=== PATIENT | female | born 1965 | race African-American/Black ===

== ENCOUNTER 2021-04-02 17:24 | Emergency (ER) | payer SELFPAY ==
[~2021-04-02] VITALS: Ht 170.2 cm; Wt 73.0 kg
[2021-04-02] MEDS ORDERED: GABAPENTIN 300MG CAPSULE PO ONE (17:45)
[2021-04-02 18:05] LABS: BASOPHILS % 0.5 % (0.0-2.0); EOSINOPHILS % 2.7 % (0.0-5.0); MEAN CORPUSCULAR HEMOGLOBIN 21.3 pg (28.0-32.0); MEAN PLATELET VOLUME 7.9 fl (7.4-10.4); MONOCYTES % 7.7 % (2.0-8.0); NEUTROPHILS % 56.1 % (40.0-76.0); PLATELET 354 x1000/uL (130-400); RED BLOOD CELL COUNT 4.71 mill/uL (4.2-5.4)
[2021-04-02 18:11] LABS: CHLORIDE 108 mEq/L (98-107)
[2021-04-02] MEDS ORDERED: AMLODIPINE 10MG TABLET PO ONE (18:15)
[2021-04-02 18:58] LABS: PLATELET ESTIMATE NORMAL
[2021-04-02] MEDS ORDERED: CLONIDINE 0.1MG TABLET PO ONE (20:30)
[2021-04-02] MEDS ORDERED: GABA300C MT (21:12)
[2021-04-02 21:35] VITALS: BP 191/94
== END 2021-04-02 21:37 | disposition home or self-care (01) ==
LOC: ER 17:24
DX: R20.0 Anesthesia of skin (principal); E11.9 Type 2 diabetes mellitus without complications; I10 Essential (primary) hypertension
CPT/HCPCS: 36415; 80053; 85025; 93005; 99284

== ENCOUNTER 2023-02-07 13:00 | Inpatient (IN) | payer MEDICAID ==
[~2023-02-07] VITALS: Ht 160 cm; Wt 85.7 kg
[~2023-02-07 13:00] MED LIST: GABA300C MT
[2023-02-07] MEDS ORDERED: HYDRALAZINE 20MG/ML VIAL IV ONE ×2 (13:15→14:30)
[2023-02-07 14:01] LABS: CHLORIDE 107 mEq/L (98-107)
[2023-02-07 14:14] LABS: BASOPHILS % 0.3 % (0.0-2.0); EOSINOPHILS % 1.4 % (0.0-5.0); HEMATOCRIT. 33.1 % (36.0-48.0); HEMOGLOBIN. 9.9 g/dL (12.0-16.0); LYMPHOCYTES % 25.7 % (20.0-50.0); MEAN CORPUSCULAR HEMOGLOBIN 18.6 pg (28.0-32.0); MEAN CORPUSCULAR VOLUME 62.2 fL (81.0-99.0); MONOCYTES % 7.3 % (2.0-8.0); NEUTROPHILS % 65.3 % (40.0-76.0); RED BLOOD CELL COUNT 5.32 mill/uL (4.2-5.4); RED CELL DISTRIBUTION WIDTH 20.5 % (11.6-14.6)
[2023-02-07] MEDS ORDERED: SODIUM CHLORIDE 0.9% 1,000 ML IV ONE (14:45)
[2023-02-07] MEDS ORDERED: FUROSEMIDE 40MG/4ML VIAL IVP ONE (14:45)
[2023-02-07] MEDS ORDERED: INSULIN REGULAR (HUMULIN R) 300UNITS/3ML VIAL IV ONE (14:45)
[2023-02-07] MEDS ORDERED: ENALAPRIL 2.5MG/2ML VIAL 2ML IV ONE (14:45)
[2023-02-07] MEDS ORDERED: ENALAPRIL 1.25MG/ML VIAL 1ML IV NR (15:00)
[2023-02-07] MEDS ORDERED: FURO20TA4 PO (15:07)
[2023-02-07] MEDS ORDERED: SERT-422 PO (15:08)
[2023-02-07] MEDS ORDERED: TRAZ-251 PO (15:08)
[2023-02-07] MEDS ORDERED: ATOR20TA65 PO (15:08)
[2023-02-07] MEDS ORDERED: LURA20TA PO (15:09)
[2023-02-07] MEDS ORDERED: ATEN50TA PO (15:10)
[2023-02-07] MEDS ORDERED: SPIR50TA5 PO (15:10)
[2023-02-07] MEDS ORDERED: CLON0.1T PO (15:11)
[2023-02-07] MEDS ORDERED: MONT-39 PO (15:11)
[2023-02-07] MEDS ORDERED: FLUT1BLS10 IH (15:12)
[2023-02-07 15:13] LABS: PLATELET ESTIMATE NORMAL
[2023-02-07] MEDS ORDERED: ALBU2.5V13 NEB (15:13)
[2023-02-07 15:15] LABS: MEAN PLATELET VOLUME 9.2 fl (7.4-10.4); PLATELET 276 x1000/uL (130-400)
[2023-02-07] MEDS ORDERED: LOSARTAN POTASSIUM 100 MG TABLET PO SCH (15:15)
[2023-02-07] MEDS ORDERED: HYDRALAZINE HCL 100MG TABLET PO SCH (15:15)
[2023-02-07] MEDS: HYDRALAZINE HCL 25MG TABLET PO SCH ×2 (15:30→22:19)
[2023-02-07] MEDS: LOSARTAN POTASSIUM 50 MG TABLET PO SCH (15:40)
[2023-02-07] MEDS ORDERED: METHYLPREDNISOLONE SOD SUCC 40MG/ML (ACT-O-VIAL) IV NR (16:00)
[2023-02-07 16:45] LABS: CLARITY URINE CLEAR (CLEAR); COLOR URINE YELLOW (YELLOW); KETONES URINE NEGATIVE (NEGATIVE); LEUKOCYTE ESTERASE URINE NEGATIVE (NEGATIVE); NITRITE URINE NEGATIVE (NEGATIVE); OCCULT BLOOD URINE TRACE (NEGATIVE); PROTEIN URINE 4+ (NEGATIVE)
[2023-02-07 16:58] LABS: *AMPHETAMINES SCREEN URINE NEGATIVE (NEGATIVE); *BARBITURATES SCREEN URINE NEGATIVE (NEGATIVE); *BENZODIAZEPINES SCREEN URINE NEGATIVE (NEGATIVE); *COCAINE SCREEN URINE PRESUMTIVE POSITIVE (NEGATIVE); CANNABINOID URINE SCREEN NEGATIVE (NEGATIVE); METHADONE URINE SCREEN NEGATIVE (NEGATIVE); OPIATES URINE SCREEN NEGATIVE (NEGATIVE); PHENCYCLIDINE URINE SCREEN NEGATIVE (NEGATIVE)
[2023-02-07] MEDS: DILTIAZEM HCL 30MG TABLET PO SCH (19:50)
[2023-02-07 20:00] VITALS: BP 162/81; PULSE 72; RESP 20; TEMP 98
[2023-02-07 21:00] VITALS: BP 162/81; PULSE 72; RESP 20; TEMP 98.8
[2023-02-07] MEDS ORDERED: DEXTROSE 50% WATER 50ML SYRINGE IV PRN (23:00)
[2023-02-08] VITALS (11 sets, daily range): BP systolic 111–222; BP diastolic 67–138; PULSE 63–104; RESP 18–24; TEMP 96.4–98.1; O2SAT 94–98
[2023-02-08] MEDS: METHYLPREDNISOLONE SOD SUCC 40MG VIAL IV SCH ×3 (00:56→13:04)
[2023-02-08] MEDS: DILTIAZEM HCL 30MG TABLET PO SCH ×2 (00:56→06:41)
[2023-02-08] MEDS: IPRATROPIUM/ALBUTEROL 0.5-3(2.5)MG/3ML NEB HHN SCH ×4 (03:16→19:31)
[2023-02-08] MEDS: BLOOD SUGAR DIAGNOSTIC STRIP TEST SCH ×4 (06:20→21:00)
[2023-02-08] MEDS: HYDRALAZINE HCL 25MG TABLET PO SCH ×2 (06:40→13:04)
[2023-02-08] MEDS: HYDRALAZINE 20MG/ML VIAL IV PRN ×2 (08:10→18:32)
[2023-02-08] MEDS: LOSARTAN POTASSIUM 50 MG TABLET PO SCH (08:10)
[2023-02-08] MEDS: FUROSEMIDE 40MG/4ML VIAL IVP SCH (08:11)
[2023-02-08] MEDS: INSULIN LISPRO 100 UNITS/ML SUBCUT SCH ×4 (08:14→21:00)
[2023-02-08 08:24] LABS: BASOPHILS % 0.4 % (0.0-2.0); EOSINOPHILS % 0.1 % (0.0-5.0); HEMATOCRIT. 33.9 % (36.0-48.0); HEMOGLOBIN. 10.2 g/dL (12.0-16.0); LYMPHOCYTES % 11.4 % (20.0-50.0); MEAN CORPUSCULAR HEMOGLOBIN 18.2 pg (28.0-32.0); MEAN CORPUSCULAR VOLUME 60.8 fL (81.0-99.0); MEAN PLATELET VOLUME 9.1 fl (7.4-10.4); MONOCYTES % 2.1 % (2.0-8.0); PLATELET 296 x1000/uL (130-400); RED BLOOD CELL COUNT 5.58 mill/uL (4.2-5.4)
[2023-02-08] MEDS: GUAIFENESIN 600MG ER TABLET PO SCH ×2 (08:34→21:00)
[2023-02-08] MEDS: CLONIDINE 0.2MG TABLET PO SCH ×3 (10:01→21:45)
[2023-02-08] MEDS: BENZONATATE 100MG CAPSULE PO PRN (12:14)
[2023-02-08] MEDS ORDERED: INSULIN GLARGINE 100 UNITS/ML SUBCUT SCH ×3 (12:15→22:00)
[2023-02-08] MEDS: DILTIAZEM HCL 60MG TABLET PO SCH ×2 (12:18→18:00)
[2023-02-08] MEDS: INSULIN GLARGINE 100 UNITS/ML SUBCUT SCH ×2 (13:06→22:00)
[2023-02-08] MEDS ORDERED: HYDROCODONE/ACETAMINOPHEN 5/325MG TABLET PO PRN (18:30)
[2023-02-08] MEDS ORDERED: ACETAMINOPHEN 325MG TABLET PO PRN (18:30)
[2023-02-08] MEDS: HYDRALAZINE HCL 100MG TABLET PO SCH (22:00)
[2023-02-08] MEDS ORDERED: NALOXONE HCL 0.4MG/ML VIAL IV PRN (22:15)
[2023-02-09] VITALS (9 sets, daily range): BP systolic 113–168; BP diastolic 6–90; PULSE 60–85; RESP 18–24; TEMP 90.8–98; O2SAT 95–100
[2023-02-09] MEDS: IPRATROPIUM/ALBUTEROL 0.5-3(2.5)MG/3ML NEB HHN SCH ×4 (02:02→21:06)
[2023-02-09] MEDS: CLONIDINE 0.2MG TABLET PO SCH ×4 (03:40→23:54)
[2023-02-09] MEDS: HYDRALAZINE HCL 100MG TABLET PO SCH ×3 (06:00→23:54)
[2023-02-09] MEDS: DILTIAZEM HCL 60MG TABLET PO SCH ×5 (06:00→23:56)
[2023-02-09] MEDS: BLOOD SUGAR DIAGNOSTIC STRIP TEST SCH ×4 (06:16→21:00)
[2023-02-09] MEDS: INSULIN LISPRO 100 UNITS/ML SUBCUT SCH ×5 (06:16→23:55)
[2023-02-09 08:13] LABS: ANTI-NUCLEAR ANTIBODIES DIRECT Negative (Negative); HIV SCREEN 4G Non Reactive (Non Reactive)
[2023-02-09] MEDS: PANTOPRAZOLE SODIUM 40 MG/VIAL IV SCH (08:58)
[2023-02-09] MEDS: LOSARTAN POTASSIUM 100 MG TABLET PO SCH (08:59)
[2023-02-09] MEDS: PREDNISONE 10MG TABLET PO SCH (08:59)
[2023-02-09] MEDS: FUROSEMIDE 40MG/4ML VIAL IVP SCH (08:59)
[2023-02-09] MEDS: GUAIFENESIN 600MG ER TABLET PO SCH ×2 (08:59→23:53)
[2023-02-09] MEDS: INSULIN GLARGINE 100 UNITS/ML SUBCUT SCH ×2 (09:04→23:56)
[2023-02-09 09:54] LABS: HEMATOCRIT. 34.2 % (36.0-48.0); HEMOGLOBIN. 10.3 g/dL (12.0-16.0); MEAN CORPUSCULAR HEMOGLOBIN 18.7 pg (28.0-32.0); MEAN CORPUSCULAR VOLUME 62.4 fL (81.0-99.0); MEAN PLATELET VOLUME 9.6 fl (7.4-10.4); PLATELET 309 x1000/uL (130-400); RED BLOOD CELL COUNT 5.47 mill/uL (4.2-5.4); RED CELL DISTRIBUTION WIDTH 20.2 % (11.6-14.6)
[2023-02-09] MEDS: BENZONATATE 100MG CAPSULE PO PRN (12:29)
[2023-02-09 21:38] LABS: PLATELET ESTIMATE NORMAL
[2023-02-10] VITALS (8 sets, daily range): BP systolic 97–196; BP diastolic 49–97; PULSE 55–86; RESP 18–20; TEMP 91.8–97.9; O2SAT 99–100
[2023-02-10] MEDS: IPRATROPIUM/ALBUTEROL 0.5-3(2.5)MG/3ML NEB HHN SCH ×2 (01:52→08:07)
[2023-02-10] MEDS: DILTIAZEM HCL 60MG TABLET PO SCH ×2 (05:57→12:56)
[2023-02-10] MEDS: HYDRALAZINE HCL 100MG TABLET PO SCH (05:57)
[2023-02-10] MEDS: BLOOD SUGAR DIAGNOSTIC STRIP TEST SCH ×2 (05:58→12:08)
[2023-02-10] MEDS: CLONIDINE 0.2MG TABLET PO SCH ×2 (05:58→09:45)
[2023-02-10] MEDS: INSULIN LISPRO 100 UNITS/ML SUBCUT SCH ×2 (05:58→13:04)
[2023-02-10] MEDS: FUROSEMIDE 40MG/4ML VIAL IVP SCH (09:00)
[2023-02-10] MEDS: LOSARTAN POTASSIUM 100 MG TABLET PO SCH (09:00)
[2023-02-10] MEDS: GUAIFENESIN 600MG ER TABLET PO SCH (09:00)
[2023-02-10] MEDS: PREDNISONE 10MG TABLET PO SCH (09:00)
[2023-02-10] MEDS: PANTOPRAZOLE SODIUM 40 MG/VIAL IV SCH (09:00)
[2023-02-10] MEDS ORDERED: AMLODIPINE 10MG TABLET PO SCH (09:00)
[2023-02-10 09:06] LABS: HEMATOCRIT. 34.9 % (36.0-48.0); HEMOGLOBIN. 10.4 g/dL (12.0-16.0); MEAN CORPUSCULAR HEMOGLOBIN 18.3 pg (28.0-32.0); MEAN CORPUSCULAR VOLUME 61.2 fL (81.0-99.0); MEAN PLATELET VOLUME 9.1 fl (7.4-10.4); PLATELET 316 x1000/uL (130-400); RED BLOOD CELL COUNT 5.69 mill/uL (4.2-5.4); RED CELL DISTRIBUTION WIDTH 19.5 % (11.6-14.6)
[2023-02-10] MEDS ORDERED: PANT40TA51 MT (09:59)
[2023-02-10] MEDS ORDERED: DILT60TA35 PO ×2 (09:59)
[2023-02-10] MEDS ORDERED: LOSA100T33 PO (09:59)
[2023-02-10] MEDS ORDERED: CLON0.2T PO (09:59)
[2023-02-10] MEDS ORDERED: HYDR100T26 PO (09:59)
[2023-02-10] MEDS ORDERED: FURO40TA5 MT (09:59)
[2023-02-10] MEDS ORDERED: LANTUSUD SUBCUT (09:59)
[2023-02-10] MEDS ORDERED: AMLO10TA80 PO (09:59)
[2023-02-10] MEDS ORDERED: PRED10TA PO (09:59)
[2023-02-10] MEDS: INSULIN GLARGINE 100 UNITS/ML SUBCUT SCH (10:00)
[2023-02-10 12:08] LABS: PLATELET ESTIMATE NORMAL
[2023-02-11] VITALS: BP 125/59; PULSE 92; RESP 18; TEMP 96.9
[2023-02-11] MEDS ORDERED: FAMOTIDINE 20MG/2ML VIAL IV SCH (09:00)
== END 2023-02-10 16:00 | disposition home or self-care (01) | DRG 194 ==
LOC: ER 13:00 → EDBEDREQSVC 15:13 → EDBEDREQ 15:13 → EDBEDREQTM 15:13 → 8WST 20:49
PROVIDERS: ADMIT Internal Medicine; ATTEND Internal Medicine
DX: I13.0 Hypertensive heart and chronic kidney disease with heart failure and stage 1 through stage 4 chronic kidney disease, or unspecified chronic kidney disease (principal); J96.01 Acute respiratory failure with hypoxia; N17.9 Acute kidney failure, unspecified; E44.0 Moderate protein-calorie malnutrition; J68.0 Bronchitis and pneumonitis due to chemicals, gases, fumes and vapors; D50.9 Iron deficiency anemia, unspecified; E11.22 Type 2 diabetes mellitus with diabetic chronic kidney disease; I16.1 Hypertensive emergency; I50.43 Acute on chronic combined systolic (congestive) and diastolic (congestive) heart failure; I07.1 Rheumatic tricuspid insufficiency; E11.65 Type 2 diabetes mellitus with hyperglycemia; F14.10 Cocaine abuse, uncomplicated; R81 Glycosuria; N18.9 Chronic kidney disease, unspecified; T59.891A Toxic effect of other specified gases, fumes and vapors, accidental (unintentional), initial encounter; Z68.33 Body mass index [BMI] 33.0-33.9, adult; Z79.4 Long term (current) use of insulin; Z99.81 Dependence on supplemental oxygen; Y92.89 Other specified places as the place of occurrence of the external cause
CPT/HCPCS: 36415; 71045; 76770; 78582; 80048; 80053; 80305; 81003; 82570; 82728; 82962; 83036; 83880; 84156; 84484; 85025; 85379; 86038; 86256; 87389; 87426; 93005; 93306; 93970; 94640; 94664; 99291; A9558; C9113; J0360; J1815; J1940; J2920; J3490; J7030; J7512

== ENCOUNTER 2023-10-06 05:39 | Emergency (ER) | payer MEDICAID ==
[~2023-10-06] VITALS: Ht 160 cm; Wt 87.0 kg
[~2023-10-06 05:39] MED LIST changes: +ALBU2.5V13 NEB; +AMLO10TA80 PO; +ATOR20TA65 PO; +CLON0.2T PO; +FLUT1BLS10 IH; +FURO40TA5 MT; -GABA300C MT; +HYDR100T26 PO; +LANTUSUD SUBCUT; +LOSA100T33 PO; +LURA20TA PO; +MONT-39 PO; +PANT40TA51 MT; +PRED10TA PO; +SERT-422 PO; +TRAZ-251 PO
[2023-10-06 05:43] VITALS: BP 181/106; PULSE 58; RESP 15; TEMP 97.3; O2SAT 100
[2023-10-06 06:28] LABS: BASOPHILS % 0.4 % (0.0-2.0); EOSINOPHILS % 0.1 % (0.0-5.0); HEMATOCRIT. 34.1 % (36.0-48.0); HEMOGLOBIN. 10.3 g/dL (12.0-16.0); LYMPHOCYTES % 19.4 % (20.0-50.0); MEAN CORPUSCULAR HEMOGLOBIN 20.2 pg (28.0-32.0); MEAN CORPUSCULAR HGB CONC 30.1 g/dL (31.0-37.0); MEAN CORPUSCULAR VOLUME 67.1 fL (81.0-99.0); MEAN PLATELET VOLUME 8.4 fl (7.4-10.4); MONOCYTES % 7.4 % (2.0-8.0); NEUTROPHILS % 72.7 % (40.0-76.0); PLATELET 402 x1000/uL (130-400); RED BLOOD CELL COUNT 5.08 mill/uL (4.2-5.4); RED CELL DISTRIBUTION WIDTH 17.3 % (11.6-14.6)
[2023-10-06 06:29] LABS: ADD RBC MORPHOLOGY YES; DIFFERENTIAL COMMENT 1
[2023-10-06 06:31] LABS: PROTHROMBIN TIME 11.4 sec (9.6-11.0)
[2023-10-06 06:44] LABS: ALANINE AMINOTRANSFERASE 52 IU/L (10-49); ALBUMIN 3.8 g/dL (3.2-4.8); ASPARTATE AMINOTRANSFERASE 33 IU/L (<34); BILIRUBIN TOTAL 0.2 mg/dL (0.1-1.0); CALCIUM 8.5 mg/dL (8.7-10.4); CARBON DIOXIDE 24 mEq/L (21-32); CHLORIDE 109 mEq/L (98-107); CREATININE 2.3 mg/dL (0.6-1.0); GLUCOSE 297 mg/dL (70-105); POTASSIUM 4.2 mEq/L (3.5-5.1); SODIUM 140 mEq/L (136-145); UREA NITROGEN BLOOD 70 mg/dL (9-23)
[2023-10-06 06:48] LABS: TROPONIN I HIGH SENSITIVITY 36 ng/L (3.0-34)
[2023-10-06 07:25] LABS: ANISOCYTOSIS 1+; HYPOCHROMASIA 1+; MICROCYTOSIS 3+; PLATELET ESTIMATE SLIGHTLY INCREASED
== END 2023-10-06 09:22 | disposition left against medical advice (07) ==
LOC: ER 05:51
DX: R05.9 Cough, unspecified (principal); Z53.21 Procedure and treatment not carried out due to patient leaving prior to being seen by health care provider
CPT/HCPCS: 36415; 80053; 84484; 85025; 93005; 99281

== ENCOUNTER 2023-10-26 20:46 | Emergency (ER) | payer MEDICAID ==
[~2023-10-26] VITALS: Ht 162.6 cm; Wt 87.0 kg
[2023-10-26 20:58] VITALS: O2SAT 98
[2023-10-26 22:02] LABS: CLARITY URINE CLEAR (CLEAR); COLOR URINE YELLOW (YELLOW); GLUCOSE URINE 3+ (NEGATIVE); KETONES URINE NEGATIVE (NEGATIVE); LEUKOCYTE ESTERASE URINE NEGATIVE (NEGATIVE); NITRITE URINE NEGATIVE (NEGATIVE); OCCULT BLOOD URINE 1+ (NEGATIVE); PH URINE 6.5 (4.5-8.0); PROTEIN URINE 2+ (NEGATIVE); SPECIFIC GRAVITY URINE 1.023 (1.005-1.030); UROBILINOGEN URINE 0.2 E.U./dL (0.2-1.0)
[2023-10-26 22:21] LABS: BACTERIA URINE 1+; SQUAMOUS EPITHELIAL CELL URINE 1+ /lpf (RARE/1+); WBC URINE 0-2 /hpf (0-2)
[2023-10-26] MEDS: SODIUM CHLORIDE 0.9% 1,000 ML IV ONE ×2 (22:27)
[2023-10-26 22:52] LABS: BASOPHILS % 0.3 % (0.0-2.0); EOSINOPHILS % 0.4 % (0.0-5.0); HEMATOCRIT. 30.1 % (36.0-48.0); HEMOGLOBIN. 8.7 g/dL (12.0-16.0); LYMPHOCYTES % 11.2 % (20.0-50.0); MEAN CORPUSCULAR HGB CONC 28.8 g/dL (31.0-37.0); MEAN CORPUSCULAR VOLUME 69.6 fL (81.0-99.0); MEAN PLATELET VOLUME 9.2 fl (7.4-10.4); MONOCYTES % 9.2 % (2.0-8.0); NEUTROPHILS % 78.9 % (40.0-76.0); PLATELET 327 x1000/uL (130-400); RED BLOOD CELL COUNT 4.32 mill/uL (4.2-5.4); RED CELL DISTRIBUTION WIDTH 18.1 % (11.6-14.6); WHITE BLOOD COUNT 9.6 x1000/uL (4.5-11.0)
[2023-10-26 22:53] LABS: ADD RBC MORPHOLOGY YES; DIFFERENTIAL COMMENT 1
[2023-10-26 23:17] LABS: ALANINE AMINOTRANSFERASE 15 IU/L (10-49); ALBUMIN 3.6 g/dL (3.2-4.8); ASPARTATE AMINOTRANSFERASE 21 IU/L (<34); BILIRUBIN TOTAL 0.2 mg/dL (0.1-1.0); CALCIUM 8.5 mg/dL (8.7-10.4); CARBON DIOXIDE 25 mEq/L (21-32); CHLORIDE 103 mEq/L (98-107); CREATININE 1.8 mg/dL (0.6-1.0); POTASSIUM 4.7 mEq/L (3.5-5.1); PROTEIN TOTAL 6.2 g/dL (6.0-8.3); SODIUM 135 mEq/L (136-145); UREA NITROGEN BLOOD 36 mg/dL (9-23)
[2023-10-26 23:18] LABS: BETA HYDROXYBUTYRATE < 0.1 mMol/L (0.0-0.3)
[2023-10-26 23:19] LABS: GLUCOSE 695 mg/dL (70-105)
[2023-10-26 23:22] LABS: BG BASE EXCESS -0.1 mmol/L (-2.0-2.0); BG CARBOXYHEMOGLOBIN 1.4 % (0.5-1.5); BG DEOXYHEMOGLOBIN 10.8 % (0.0-5.0); BG FRACTION INSPIRED OXYGEN 36; BG HCO3 ACT 25.3 mmol/L (22.0-26.0); BG METHEMOGLOBIN 0.2 % (0.0-1.5); BG OXYHEMOGLOBIN 87.6 % (94.0-97.0); BG PCO2 44.7 mmHg (35.0-45.0); BG PH 7.371 (7.350-7.450); BG SAMPLE SITE RIGHT RADIAL; BG TOTAL HEMOGLOBIN 9.5 g/dL (12.0-18.0); BG VENT MODE NASAL CANNULA
[2023-10-26 23:53] LABS: PLATELET ESTIMATE NORMAL
[2023-10-26 23:54] LABS: ANISOCYTOSIS 1+; HYPOCHROMASIA 2+; MICROCYTOSIS 3+; OVALOCYTES 1+
[2023-10-27] MEDS: INSULIN REGULAR (HUMULIN R) 300UNITS/3ML VIAL IV NR (00:25)
[2023-10-27] MEDS: HYDRALAZINE 20MG/ML VIAL IV NR (00:25)
[2023-10-27] MEDS: FUROSEMIDE 40MG/4ML VIAL IV NR (00:46)
[2023-10-27 02:50] LABS: TROPONIN I HIGH SENSITIVITY 43 ng/L (3.0-34)
[2023-10-27] MEDS: INSULIN LISPRO 100 UNITS/ML SUBCUT NR (05:00)
[2023-10-27] MEDS: HYDRALAZINE 20MG/ML VIAL IV PRN (05:30)
[2023-10-27 07:30] VITALS: BP 177/66; PULSE 91; RESP 15; TEMP 98.4
== END 2023-10-27 13:13 | disposition left against medical advice (07) ==
LOC: ER 20:46 → EDBEDREQTM 10-27 01:20 → EDBEDREQ 10-27 01:20 → CANBEDREQ 10-27 13:04 → ER 10-27 13:13
DX: E11.65 Type 2 diabetes mellitus with hyperglycemia (principal); J44.9 Chronic obstructive pulmonary disease, unspecified; I11.0 Hypertensive heart disease with heart failure; I50.9 Heart failure, unspecified; Z79.899 Other long term (current) drug therapy; Z20.822 Contact with and (suspected) exposure to COVID-19
CPT/HCPCS: 80053; 81003; 82010; 82962 ×2; 83880; 85025; 36415; 71045; 82805; 82375; 93005; 99285; 36600; 84484; 87804 ×2; 96361; 96372; 96374; 96375; 96376; 87426; J7030; J1940; J0360; J1815 ×2; Z7610 ×2

== ENCOUNTER 2023-11-26 00:10 | Emergency (ER) | payer MEDICAID ==
[~2023-11-26] VITALS: Ht 160 cm; Wt 61.0 kg
[~2023-11-26 00:10] MED LIST changes: -AMLO10TA80 PO; +INSU100I28 SQ; +NIFE-32 MT; +P20 MT; -PRED10TA PO
[2023-11-26 00:11] VITALS: TEMP 98.4
[2023-11-26] MEDS: ALBUTEROL (0.083%) 2.5MG/3ML NEB HHN SCH (00:38)
[2023-11-26 00:39] VITALS: PULSE 80; RESP 26; O2SAT 97
[2023-11-26] MEDS: IPRATROPIUM BROMIDE (0.02%) 0.5MG/2.5ML NEB HHN STA (00:39)
[2023-11-26 00:45] LABS: BASOPHILS % 0.6 % (0.0-2.0); EOSINOPHILS % 1.1 % (0.0-5.0); HEMATOCRIT. 26.4 % (36.0-48.0); HEMOGLOBIN. 7.8 g/dL (12.0-16.0); MEAN CORPUSCULAR HEMOGLOBIN 20.4 pg (28.0-32.0); MEAN CORPUSCULAR HGB CONC 29.4 g/dL (31.0-37.0); MEAN CORPUSCULAR VOLUME 69.2 fL (81.0-99.0); MEAN PLATELET VOLUME 8.4 fl (7.4-10.4); NEUTROPHILS % 73.3 % (40.0-76.0); PLATELET 317 x1000/uL (130-400); RED BLOOD CELL COUNT 3.81 mill/uL (4.2-5.4); WHITE BLOOD COUNT 7.7 x1000/uL (4.5-11.0)
[2023-11-26 00:47] LABS: DIFFERENTIAL COMMENT 1
[2023-11-26 00:52] LABS: BG BASE EXCESS -2.2 mmol/L (-2.0-2.0); BG CARBOXYHEMOGLOBIN 0.9 % (0.5-1.5); BG DEOXYHEMOGLOBIN 4.9 % (0.0-5.0); BG HCO3 ACT 22.5 mmol/L (22.0-26.0); BG METHEMOGLOBIN 0.1 % (0.0-1.5); BG OXYGEN SATURATION 95.1 % (92.0-98.5); BG OXYHEMOGLOBIN 94.1 % (94.0-97.0); BG PCO2 37.7 mmHg (35.0-45.0); BG PH 7.393 (7.350-7.450); BG PO2 79.4 mmHg (75.0-100.0); BG SAMPLE SITE RIGHT RADIAL; BG TOTAL HEMOGLOBIN 7.9 g/dL (12.0-18.0); BG VENT MODE HHN
[2023-11-26 01:00] LABS: CARBON DIOXIDE 23 mEq/L (21-32); CHLORIDE 114 mEq/L (98-107); POTASSIUM 3.7 mEq/L (3.5-5.1); SODIUM 142 mEq/L (136-145)
[2023-11-26 01:01] LABS: CALCIUM 8.9 mg/dL (8.7-10.4)
[2023-11-26] MEDS: METHYLPREDNISOLONE SOD SUCC 125MG/2ML (ACT-O-VIAL) IV STA (01:02)
[2023-11-26] MEDS: FUROSEMIDE 40MG/4ML VIAL IVP ONE (01:02)
[2023-11-26] MEDS: MAGNESIUM 2 G PREMIX 50 ML IV ONE (01:04)
[2023-11-26 01:05] LABS: CREATININE 1.9 mg/dL (0.6-1.0); LACTIC ACID 2.2 mmol/L (0.4-2.0)
[2023-11-26 01:06] LABS: GLUCOSE 103 mg/dL (70-105); UREA NITROGEN BLOOD 26 mg/dL (9-23)
[2023-11-26 01:07] LABS: TROPONIN I HIGH SENSITIVITY 27 ng/L (3.0-34)
[2023-11-26] MEDS: PIPERACILLIN/TAZO 3.375G/50ML 50 ML IV ONE (03:13)
[2023-11-26 03:32] LABS: TROPONIN I HIGH SENSITIVITY 27 ng/L (3.0-34)
[2023-11-26] MEDS: VANCOMYCIN 1G PREMIX 200 ML IV ONE (04:18)
[2023-11-26 05:17] VITALS: BP 115/64
[2023-11-26] MEDS: IOHEXOL-350 100 ML BOTTLE ONE (05:51)
[2023-11-26] MEDS ORDERED: DOCUSATE SODIUM 100MG CAPSULE PO PRN (08:15)
[2023-11-26] MEDS ORDERED: IPRATROPIUM/ALBUTEROL 0.5-3(2.5)MG/3ML NEB HHN PRN (08:15)
[2023-11-26] MEDS ORDERED: DEXTROSE 50% WATER 50ML SYRINGE IV PRN (08:15)
[2023-11-26] MEDS ORDERED: ONDANSETRON HCL 4MG/2ML INJ IV PRN (08:15)
[2023-11-26] MEDS ORDERED: MAGNESIUM/ALUMINUM HYDROXIDE/SIMETHICONE 30ML UDC PO PRN (08:15)
[2023-11-26] MEDS ORDERED: ACETAMINOPHEN 325MG TABLET PO PRN ×2 (08:15)
[2023-11-26] MEDS ORDERED: ENOXAPARIN 40MG/0.4ML SYR SUBCUT SCH (08:15)
[2023-11-26] MEDS ORDERED: CLONIDINE 0.1MG TABLET PO PRN (08:15)
[2023-11-26] MEDS ORDERED: GUAIFENESIN 200MG/10ML SUGAR FREE UDC PO PRN (08:15)
[2023-11-26] MEDS ORDERED: AZITHROMYCIN 500 MG in DEXT 5% WATER 250 ML IV SCH (08:15)
[2023-11-26] MEDS: INSULIN LISPRO 100 UNITS/ML SUBCUT SCH (08:20)
[2023-11-26 08:30] VITALS: PULSE 80; RESP 24; O2SAT 94
[2023-11-26] MEDS: THIAMINE HCL 100MG TABLET PO SCH (09:00)
[2023-11-26] MEDS: ENOXAPARIN 30MG/0.3ML SYR SUBCUT SCH (09:00)
[2023-11-26] MEDS: METHYLPREDNISOLONE SOD SUCC 125MG/2ML (ACT-O-VIAL) IV SCH (09:00)
[2023-11-26] MEDS: BLOOD SUGAR DIAGNOSTIC STRIP TEST SCH (09:00)
[2023-11-26] MEDS: AZITHROMYCIN 500MG/250ML IV SCH (09:00)
[2023-11-26] MEDS: IPRATROPIUM/ALBUTEROL 0.5-3(2.5)MG/3ML NEB HHN SCH (09:46)
[2023-11-26] MEDS: FUROSEMIDE 40MG/4ML VIAL IVP NR (10:00)
[2023-11-26] MEDS ORDERED: INSULIN GLARGINE 100 UNITS/ML SUBCUT SCH (10:15)
[2023-11-26 10:37] LABS: HEMATOCRIT 26.3 % (36.0-48.0); HEMOGLOBIN 7.7 g/dL (12.0-16.0); MEAN CORPUSCULAR HEMOGLOBIN 20.1 pg (28.0-32.0); MEAN CORPUSCULAR HGB CONC 29.3 g/dL (31.0-37.0); MEAN CORPUSCULAR VOLUME 68.8 fL (81.0-99.0); PLATELET 325 x1000/uL (130-400); RED BLOOD CELL COUNT 3.83 mill/uL (4.2-5.4); RED CELL DISTRIBUTION WIDTH 19.8 % (11.6-14.6)
[2023-11-26 10:50] LABS: IRON 29 ug/dL (50-170)
[2023-11-26 10:53] LABS: ALANINE AMINOTRANSFERASE 21 IU/L (10-49); ALBUMIN 3.3 g/dL (3.2-4.8); ASPARTATE AMINOTRANSFERASE 16 IU/L (<34); BILIRUBIN DIRECT 0.1 mg/dL (<=3.0); BILIRUBIN TOTAL 0.3 mg/dL (0.1-1.0); PROTEIN TOTAL 6.5 g/dL (6.0-8.3); TOTAL IRON BINDING CAPACITY 441 ug/dl (250-425)
[2023-11-26 11:25] LABS: FOLIC ACID (FOLATE) SERUM 12.01 ng/mL (>5.38)
[2023-11-26 11:31] LABS: VITAMIN B12 SERUM 833 pg/mL (211-911)
== END 2023-11-26 11:00 | disposition left against medical advice (07) ==
LOC: ER 00:10
DX: J44.1 Chronic obstructive pulmonary disease with (acute) exacerbation (principal); J96.91 Respiratory failure, unspecified with hypoxia; E11.9 Type 2 diabetes mellitus without complications; I10 Essential (primary) hypertension; Z20.822 Contact with and (suspected) exposure to COVID-19
CPT/HCPCS: 80076; 80048; 82607; 82746; 82962; 83036; 83880; 84439; 83540; 83550; 83605; 85027; 85025; 85379; 87040; 84484; 36415; 71045; 71275; 93970; 94640; 82805; 82375; 93005; 94644; 96367; 96365; 96372; 96375; 96376; 99291; 87426; 36600; Q9967; J0456; J1650; J1940; J1815; J3475; J2930; J2543; J3370; Z7610 ×4

== ENCOUNTER 2023-12-03 04:03 | Emergency (ER) | payer MEDICAID ==
[~2023-12-03] VITALS: Ht 162.6 cm; Wt 91.0 kg
[2023-12-03 04:05] VITALS: O2SAT 99
[2023-12-03] MEDS ORDERED: IPRATROPIUM BROMIDE (0.02%) 0.5MG/2.5ML NEB HHN STA ×2 (04:23→05:19)
[2023-12-03 04:30] VITALS: TEMP 98.3
[2023-12-03 05:06] LABS: BASOPHILS % 1.1 % (0.0-2.0); EOSINOPHILS % 1.3 % (0.0-5.0); HEMATOCRIT. 26.6 % (36.0-48.0); HEMOGLOBIN. 7.9 g/dL (12.0-16.0); LYMPHOCYTES % 21.1 % (20.0-50.0); MEAN CORPUSCULAR HEMOGLOBIN 20.1 pg (28.0-32.0); MEAN CORPUSCULAR HGB CONC 29.9 g/dL (31.0-37.0); MEAN CORPUSCULAR VOLUME 67.3 fL (81.0-99.0); MEAN PLATELET VOLUME 8.9 fl (7.4-10.4); MONOCYTES % 9.5 % (2.0-8.0); PLATELET 432 x1000/uL (130-400); RED BLOOD CELL COUNT 3.95 mill/uL (4.2-5.4); RED CELL DISTRIBUTION WIDTH 20.4 % (11.6-14.6); WHITE BLOOD COUNT 8.1 x1000/uL (4.5-11.0)
[2023-12-03 05:18] LABS: CHLORIDE 107 mEq/L (98-107); POTASSIUM 4.1 mEq/L (3.5-5.1); SODIUM 139 mEq/L (136-145)
[2023-12-03 05:19] LABS: CALCIUM 8.9 mg/dL (8.7-10.4); CARBON DIOXIDE 23 mEq/L (21-32)
[2023-12-03] MEDS ORDERED: ALBUTEROL (0.083%) 2.5MG/3ML NEB HHN STA (05:19)
[2023-12-03 05:24] LABS: CREATININE 1.8 mg/dL (0.6-1.0); ETHANOL BLOOD < 10 mg/dL (<10); GLUCOSE 391 mg/dL (70-105); TROPONIN I HIGH SENSITIVITY 32 ng/L (3.0-34); UREA NITROGEN BLOOD 31 mg/dL (9-23)
[2023-12-03 05:41] LABS: ADD RBC MORPHOLOGY YES; DIFFERENTIAL COMMENT 1
[2023-12-03] MEDS: ALBUTEROL (0.083%) 2.5MG/3ML NEB HHN STA (05:41)
[2023-12-03 05:42] VITALS: RESP 28
[2023-12-03] MEDS: IPRATROPIUM BROMIDE (0.02%) 0.5MG/2.5ML NEB HHN STA (05:42)
[2023-12-03] MEDS: HYDRALAZINE 20MG/ML VIAL IV ONE (05:52)
[2023-12-03] MEDS: MAGNESIUM 2 G PREMIX 50 ML IV ONE (05:53)
[2023-12-03] MEDS: NITROGLYCERIN OINT 1GM/INCH UDPKT TD ONE (05:53)
[2023-12-03] MEDS: FUROSEMIDE 40MG/4ML VIAL IV ONE (05:54)
[2023-12-03] MEDS: METHYLPREDNISOLONE SOD SUCC 125MG/2ML (ACT-O-VIAL) IV STA (05:55)
[2023-12-03 06:29] VITALS: BP 184/99; PULSE 74; RESP 18
[2023-12-03 07:32] LABS: BG BASE EXCESS -1.9 mmol/L (-2.0-2.0); BG CARBOXYHEMOGLOBIN 1.6 % (0.5-1.5); BG DEOXYHEMOGLOBIN 11.4 % (0.0-5.0); BG FRACTION INSPIRED OXYGEN 21; BG HCO3 ACT 21.2 mmol/L (22.0-26.0); BG METHEMOGLOBIN 0.4 % (0.0-1.5); BG OXYGEN SATURATION 88.4 % (92.0-98.5); BG OXYHEMOGLOBIN 86.6 % (94.0-97.0); BG PCO2 29.7 mmHg (35.0-45.0); BG PH 7.471 (7.350-7.450); BG PO2 51.9 mmHg (75.0-100.0); BG SAMPLE SITE RIGHT RADIAL; BG TOTAL HEMOGLOBIN 8.9 g/dL (12.0-18.0); BG VENT MODE ROOM AIR
[2023-12-03 11:48] LABS: ANISOCYTOSIS 2+; MICROCYTOSIS 3+; OVALOCYTES 1+; PLATELET ESTIMATE SLIGHTLY INCREASED
[2023-12-03 11:50] LABS: HYPOCHROMASIA 1+
== END 2023-12-03 08:20 | disposition left against medical advice (07) ==
LOC: ER 04:03
DX: J96.91 Respiratory failure, unspecified with hypoxia (principal); I50.9 Heart failure, unspecified; J44.1 Chronic obstructive pulmonary disease with (acute) exacerbation; I11.0 Hypertensive heart disease with heart failure; E11.9 Type 2 diabetes mellitus without complications
CPT/HCPCS: 80048; 80320; 83880; 85025; 84484; 36415; 71045; 94640; 82805; 82375; 94660; 93005; 96365; 96375; 99291; 36600; J1940; J0360; J3475; J2930; Z7610 ×3; G0480

== ENCOUNTER 2024-03-31 17:03 | Emergency (ER) | payer MEDICAID ==
[~2024-03-31] VITALS: Ht 165.1 cm; Wt 80.0 kg
[~2024-03-31 17:03] MED LIST changes: +ALBU18HF2 IH; -FLUT1BLS10 IH; +FLUT1DIS3 INH; +HYDR100T11 PO; -HYDR100T26 PO; -LOSA100T33 PO; -NIFE-32 MT; -P20 MT
[2024-03-31 17:14] VITALS: BP 215/100; PULSE 68; RESP 20; TEMP 98.5; O2SAT 100
[2024-03-31 18:30] LABS: BASOPHILS % 0.6 % (0.0-2.0); EOSINOPHILS % 0.7 % (0.0-5.0); HEMATOCRIT. 34.5 % (36.0-48.0); HEMOGLOBIN. 10.1 g/dL (12.0-16.0); LYMPHOCYTES % 14.7 % (20.0-50.0); MEAN CORPUSCULAR HEMOGLOBIN 17.8 pg (28.0-32.0); MEAN CORPUSCULAR HGB CONC 29.2 g/dL (31.0-37.0); MEAN CORPUSCULAR VOLUME 60.9 fL (81.0-99.0); MEAN PLATELET VOLUME 8.6 fl (7.4-10.4); MONOCYTES % 4.4 % (2.0-8.0); NEUTROPHILS % 79.6 % (40.0-76.0); PLATELET 396 x1000/uL (130-400); RED BLOOD CELL COUNT 5.66 mill/uL (4.2-5.4); RED CELL DISTRIBUTION WIDTH 20.8 % (11.6-14.6)
[2024-03-31 18:34] LABS: DIFFERENTIAL COMMENT 1
[2024-03-31 18:37] LABS: CHLORIDE 109 mEq/L (98-107); POTASSIUM 4.8 mEq/L (3.5-5.1); SODIUM 140 mEq/L (136-145)
[2024-03-31 18:38] LABS: CALCIUM 8.7 mg/dL (8.7-10.4); CARBON DIOXIDE 27 mEq/L (21-32)
[2024-03-31 18:39] LABS: PROTHROMBIN TIME 11.5 sec (9.6-11.0)
[2024-03-31 18:43] LABS: UREA NITROGEN BLOOD 38 mg/dL (9-23)
[2024-03-31 18:44] LABS: TROPONIN I HIGH SENSITIVITY 25 ng/L (3.0-34)
[2024-03-31 18:45] LABS: ALANINE AMINOTRANSFERASE 15 IU/L (10-49); ALBUMIN 3.2 g/dL (3.2-4.8); ASPARTATE AMINOTRANSFERASE 17 IU/L (<34); BILIRUBIN TOTAL 0.2 mg/dL (0.1-1.0); PROTEIN TOTAL 5.8 g/dL (6.0-8.3)
[2024-03-31 18:46] LABS: GLUCOSE 402 mg/dL (70-105)
[2024-03-31 18:47] LABS: BILIRUBIN DIRECT < 0.1 mg/dL (<=3.0)
== END 2024-03-31 20:39 | disposition left against medical advice (07) ==
LOC: ER 17:03
DX: I11.0 Hypertensive heart disease with heart failure (principal); I50.9 Heart failure, unspecified; E11.9 Type 2 diabetes mellitus without complications; Z79.899 Other long term (current) drug therapy; Z79.4 Long term (current) use of insulin
CPT/HCPCS: 36415; 71045; 80048; 80076; 83880; 84484; 85025; 93005; 99291

== ENCOUNTER 2024-05-14 04:56 | Inpatient (IN) | payer MEDICAID ==
[~2024-05-14] VITALS: Ht 160 cm; Wt 81.6 kg
[~2024-05-14 04:56] MED LIST changes: +AMLO10TA80 PO; +ASPI-1406 PO; -CLON0.2T PO; +DIGO-34 PO; +FERR-63 PO; -FLUT1DIS3 INH; +FOLI-43 PO; -FURO40TA5 MT; +FURO40TA5 PO; +INSU100I11 SQ; -INSU100I28 SQ; -LANTUSUD SUBCUT; +LISI20TA31 PO; +METH4TAB95 MT; +NEED-122 SQ; +THIA100T72 PO
[2024-05-14 05:13] VITALS: O2SAT 100
[2024-05-14] MEDS ORDERED: HYDRALAZINE 20MG/ML VIAL IV ONE (05:30)
[2024-05-14 09:16] LABS: CHLORIDE 106 mEq/L (98-107); SODIUM 139 mEq/L (136-145)
[2024-05-14 09:17] LABS: CARBON DIOXIDE 27 mEq/L (21-32)
[2024-05-14 09:18] LABS: CALCIUM 8.9 mg/dL (8.7-10.4)
[2024-05-14 09:23] LABS: UREA NITROGEN BLOOD 73 mg/dL (9-23)
[2024-05-14 09:24] LABS: ALANINE AMINOTRANSFERASE 13 IU/L (10-49); ALBUMIN 3.3 g/dL (3.2-4.8); ASPARTATE AMINOTRANSFERASE 18 IU/L (<34)
[2024-05-14 09:25] LABS: BILIRUBIN TOTAL 0.2 mg/dL (0.1-1.0); PROTEIN TOTAL 5.9 g/dL (6.0-8.3)
[2024-05-14 09:35] LABS: HEMATOCRIT. 38.4 % (36.0-48.0); HEMOGLOBIN. 10.9 g/dL (12.0-16.0); MEAN CORPUSCULAR HEMOGLOBIN 17.9 pg (28.0-32.0); MEAN CORPUSCULAR HGB CONC 28.2 g/dL (31.0-37.0); MEAN CORPUSCULAR VOLUME 63.4 fL (81.0-99.0); RED BLOOD CELL COUNT 6.06 mill/uL (4.2-5.4); RED CELL DISTRIBUTION WIDTH 23.1 % (11.6-14.6); WHITE BLOOD COUNT 8.9 x1000/uL (4.5-11.0)
[2024-05-14 09:47] LABS: DIFFERENTIAL COMMENT 1
[2024-05-14 10:04] LABS: BILIRUBIN DIRECT < 0.1 mg/dL (<=3.0)
[2024-05-14 10:06] LABS: POTASSIUM 6.2 mEq/L (3.5-5.1)
[2024-05-14 10:07] LABS: GLUCOSE 497 mg/dL (70-105); TROPONIN I HIGH SENSITIVITY 115 ng/L (3.0-34)
[2024-05-14] MEDS: IPRATROPIUM BROMIDE (0.02%) 0.5MG/2.5ML NEB HHN STA (10:29)
[2024-05-14] MEDS ORDERED: DEXTROSE 50% WATER 50ML SYRINGE IV ONE (10:30)
[2024-05-14] MEDS: ALBUTEROL (0.083%) 2.5MG/3ML NEB HHN STA (10:30)
[2024-05-14] MEDS ORDERED: SODIUM POLYSTYRENE SULFONATE 15 G/60 ML BOT PO ONE (10:30)
[2024-05-14] MEDS ORDERED: INSULIN REGULAR (HUMULIN R) 1000UNITS/10ML VIAL IV ONE (10:30)
[2024-05-14] MEDS: PREDNISONE 20MG TABLET PO STA (10:30)
[2024-05-14] MEDS: CALCIUM CHLORIDE 1GM/10ML SYR IV ONE (12:40)
[2024-05-14] MEDS: FUROSEMIDE 100MG/10ML VIAL IV STA (13:00)
[2024-05-14] MEDS: HYDRALAZINE 20MG/ML VIAL IV NR ×2 (13:00→17:26)
[2024-05-14] MEDS: SODIUM POLYSTYRENE SULFONATE 15 G/60 ML BOT PO NR (13:00)
[2024-05-14] MEDS: SODIUM BICARBONATE 8.4% 50MEQ/50ML SYR IV ONE (13:00)
[2024-05-14 13:15] LABS: PLATELET 259 x1000/uL (130-400)
[2024-05-14 13:18] LABS: HYPOCHROMASIA 1+; MICROCYTOSIS 3+; PLATELET ESTIMATE NORMAL
[2024-05-14 13:19] LABS: ANISOCYTOSIS 2+
[2024-05-14] MEDS: INSULIN REGULAR (HUMULIN R) 1000UNITS/10ML VIAL IV NR (13:23)
[2024-05-14] MEDS: DEXTROSE 50% WATER 50ML SYRINGE IV NR (13:24)
[2024-05-14] MEDS: ASPIRIN 325MG EC TABLET PO ONE (13:26)
[2024-05-14] MEDS: ALBUTEROL (0.083%) 2.5MG/3ML NEB HHN ONE (20:11)
[2024-05-14] MEDS: CLONIDINE 0.1MG TABLET PO NR (21:27)
[2024-05-14] MEDS: ENOXAPARIN 80MG/0.8ML SYR SUBCUT NR (22:03)
[2024-05-15] VITALS: BP 180/84; PULSE 81; RESP 20; TEMP 37.11408; O2SAT 97
[2024-05-15] MEDS ORDERED: DEXTROSE 50% WATER 50ML SYRINGE IV PRN (03:45)
[2024-05-15] MEDS ORDERED: IPRATROPIUM/ALBUTEROL 0.5-3(2.5)MG/3ML NEB HHN PRN (03:45)
[2024-05-15 04:00] VITALS: BP 166/67; PULSE 89; RESP 18; TEMP 37.16964; O2SAT 99
[2024-05-15] MEDS: PANTOPRAZOLE 40MG DR TABLET PO SCH (06:05)
[2024-05-15] MEDS: BLOOD SUGAR DIAGNOSTIC STRIP TEST SCH (06:05)
[2024-05-15] MEDS: CLONIDINE 0.1MG TABLET PO PRN (06:06)
[2024-05-15] MEDS: INSULIN LISPRO (MEDIUM DOSE) 100 UNITS/ML SUBCUT SCH (07:40)
[2024-05-15 08:00] VITALS: BP 195/88; PULSE 75; RESP 18; TEMP 36.6696; O2SAT 98
[2024-05-15 08:25] VITALS: BP 195/88; PULSE 82; RESP 18; TEMP 36.696
[2024-05-15] MEDS: INSULIN GLARGINE 100 UNITS/ML SUBCUT SCH (09:49)
[2024-05-15] MEDS: AMLODIPINE 10MG TABLET PO SCH (09:51)
[2024-05-15] MEDS: SERTRALINE HCL 50MG TABLET PO SCH (09:51)
[2024-05-15] MEDS: LOSARTAN 50 MG TABLET PO SCH (09:51)
[2024-05-15] MEDS: FUROSEMIDE 40MG TABLET PO SCH (09:52)
[2024-05-15 12:00] VITALS: BP 125/70; PULSE 68; RESP 18; TEMP 36.72516; O2SAT 98
[2024-05-15 12:18] LABS: HEMATOCRIT. 34.9 % (36.0-48.0); MEAN CORPUSCULAR HEMOGLOBIN 18.1 pg (28.0-32.0); MEAN CORPUSCULAR HGB CONC 28.7 g/dL (31.0-37.0); MEAN CORPUSCULAR VOLUME 63.2 fL (81.0-99.0); RED BLOOD CELL COUNT 5.53 mill/uL (4.2-5.4); RED CELL DISTRIBUTION WIDTH 22.8 % (11.6-14.6); WHITE BLOOD COUNT 7.5 x1000/uL (4.5-11.0)
[2024-05-15 12:37] LABS: DIFFERENTIAL COMMENT 1
[2024-05-15 13:34] LABS: PLATELET 260 x1000/uL (130-400)
[2024-05-15 13:41] LABS: PLATELET ESTIMATE NORMAL
[2024-05-15 13:42] LABS: ANISOCYTOSIS 3+; HYPOCHROMASIA 1+; MICROCYTOSIS 3+
[2024-05-15 13:43] LABS: TEAR DROP CELLS FEW
[2024-05-15 16:00] VITALS: BP 142/64; PULSE 75; RESP 18; TEMP 36.61404; O2SAT 98
[2024-05-15] MEDS ORDERED: FUROSEMIDE 40MG/4ML VIAL IVP SCH (16:20)
[2024-05-15] MEDS ORDERED: ATORVASTATIN CALCIUM 40MG TABLET PO SCH (21:00)
[2024-05-15] MEDS ORDERED: TRAZODONE HCL 50MG TABLET PO SCH (21:00)
== END 2024-05-15 17:50 | disposition left against medical advice (07) | DRG 140 ==
LOC: ER 05:59 → 5WST 12:10 → EDBEDREQTM 12:18 → EDBEDREQ 12:18 → 7EST 05-15 08:20
PROVIDERS: ADMIT Internal Medicine; ATTEND Internal Medicine
PROC: 5A0935A Assistance with Respiratory Ventilation, Less than 24 Consecutive Hours, High Flow/Velocity Cannula (ICD-10-PCS; principal; 2024-05-15)
DX: J44.1 Chronic obstructive pulmonary disease with (acute) exacerbation (principal); J96.01 Acute respiratory failure with hypoxia; I21.4 Non-ST elevation (NSTEMI) myocardial infarction; I50.43 Acute on chronic combined systolic (congestive) and diastolic (congestive) heart failure; I27.20 Pulmonary hypertension, unspecified; N17.9 Acute kidney failure, unspecified; E11.22 Type 2 diabetes mellitus with diabetic chronic kidney disease; D50.9 Iron deficiency anemia, unspecified; I13.0 Hypertensive heart and chronic kidney disease with heart failure and stage 1 through stage 4 chronic kidney disease, or unspecified chronic kidney disease; I16.0 Hypertensive urgency; Z53.29 Procedure and treatment not carried out because of patient's decision for other reasons; E11.65 Type 2 diabetes mellitus with hyperglycemia; Z68.31 Body mass index [BMI] 31.0-31.9, adult; E66.9 Obesity, unspecified; E78.5 Hyperlipidemia, unspecified; E87.5 Hyperkalemia; F14.90 Cocaine use, unspecified, uncomplicated; F17.210 Nicotine dependence, cigarettes, uncomplicated; N18.9 Chronic kidney disease, unspecified; Z91.199 Patient's noncompliance with other medical treatment and regimen due to unspecified reason; Z79.899 Other long term (current) drug therapy
CPT/HCPCS: 36415; 71045; 80048; 80061; 80076; 82962; 83036; 83880; 84484; 85025; 93005; 99291; J0360; J1650; J1815; J1940; J3490

== ENCOUNTER 2024-06-03 20:53 | Emergency (ER) | payer MEDICAID ==
[2024-06-03] VITALS (8 sets, daily range): PULSE 93–99; RESP 24–39; TEMP 98.5; O2SAT 99
[~2024-06-03] VITALS: Ht 167.6 cm; Wt 69.0 kg
[2024-06-03] MEDS ORDERED: PREDNISONE 20MG TABLET PO STA (21:16)
[2024-06-03] MEDS: ALBUTEROL (0.083%) 2.5MG/3ML NEB HHN SCH ×2 (21:36→23:20)
[2024-06-03] MEDS: IPRATROPIUM BROMIDE (0.02%) 0.5MG/2.5ML NEB HHN STA (21:36)
[2024-06-03] MEDS: MAGNESIUM 2 G PREMIX 50 ML IV ONE (22:25)
[2024-06-03] MEDS: METHYLPREDNISOLONE SOD SUCC 125MG/2ML (ACT-O-VIAL) IV ONE (22:26)
[2024-06-03 22:55] LABS: CHLORIDE 104 mEq/L (98-107); POTASSIUM 5.8 mEq/L (3.5-5.1); SODIUM 134 mEq/L (136-145)
[2024-06-03 22:56] LABS: CARBON DIOXIDE 23 mEq/L (21-32)
[2024-06-03] MEDS: SODIUM CHLORIDE 0.9% 1,000 ML IV ONE (22:56)
[2024-06-03 22:57] LABS: CALCIUM 8.6 mg/dL (8.7-10.4)
[2024-06-03 22:58] LABS: HEMATOCRIT. 37.3 % (36.0-48.0); HEMOGLOBIN. 10.3 g/dL (12.0-16.0); MEAN CORPUSCULAR HEMOGLOBIN 18.3 pg (28.0-32.0); MEAN CORPUSCULAR HGB CONC 27.6 g/dL (31.0-37.0); MEAN CORPUSCULAR VOLUME 66.1 fL (81.0-99.0); MEAN PLATELET VOLUME 9.1 fl (7.4-10.4); PLATELET 263 x1000/uL (130-400); RED BLOOD CELL COUNT 5.64 mill/uL (4.2-5.4); RED CELL DISTRIBUTION WIDTH 25.3 % (11.6-14.6); WHITE BLOOD COUNT 7.2 x1000/uL (4.5-11.0)
[2024-06-03 23:01] LABS: CREATININE 2.1 mg/dL (0.6-1.0)
[2024-06-03 23:02] LABS: DIFFERENTIAL COMMENT 1; UREA NITROGEN BLOOD 48 mg/dL (9-23)
[2024-06-03 23:13] LABS: GLUCOSE 685 mg/dL (70-105)
[2024-06-03 23:14] LABS: TROPONIN I HIGH SENSITIVITY 65 ng/L (3.0-34)
[2024-06-03] MEDS ORDERED: CALCIUM GLUCONATE 1,000 MG in DEXT 5% WATER 100 ML IV ONE (23:15)
[2024-06-03 23:35] LABS: HYPOCHROMASIA 3+; MICROCYTOSIS 3+; PLATELET ESTIMATE NORMAL
[2024-06-03 23:36] LABS: ANISOCYTOSIS 2+; OVALOCYTES 1+
[2024-06-03] MEDS: INSULIN REGULAR (HUMULIN R) 1000UNITS/10ML VIAL IV ONE (23:41)
[2024-06-03] MEDS: SODIUM BICARBONATE 8.4% 50MEQ/50ML SYR IV ONE (23:53)
[2024-06-03] MEDS: DEXTROSE 50% WATER 50ML SYRINGE IV ONE (23:53)
[2024-06-03] MEDS: CALCIUM GLUCONATE 1GM PREMIX 50 ML IV NR (23:53)
[2024-06-04 00:40] VITALS: BP 128/99; PULSE 95; RESP 16; O2SAT 100
== END 2024-06-04 00:53 | disposition left against medical advice (07) ==
LOC: ER 20:53 → EDBEDREQTM 23:46 → EDBEDREQSVC 23:46 → ER 06-04 00:53
DX: J96.01 Acute respiratory failure with hypoxia (principal); E87.5 Hyperkalemia; F19.90 Other psychoactive substance use, unspecified, uncomplicated; I13.0 Hypertensive heart and chronic kidney disease with heart failure and stage 1 through stage 4 chronic kidney disease, or unspecified chronic kidney disease; N17.9 Acute kidney failure, unspecified; E11.65 Type 2 diabetes mellitus with hyperglycemia; E11.22 Type 2 diabetes mellitus with diabetic chronic kidney disease; J44.9 Chronic obstructive pulmonary disease, unspecified; I50.23 Acute on chronic systolic (congestive) heart failure
CPT/HCPCS: 80048; 82962; 83880; 85025; 84484; 36415; 71045; 94640; 94660 ×2; 93005; 96368; 96365; 96366; 96375; 99291; J0610; J1815; J3475; J2919; J3490; Z7610 ×6; J7030; J7060